=== PATIENT | female | born 1940 | race Caucasian/White ===

== ENCOUNTER → 2023-10-17 11:18 | Outpatient (CLI) | payer MEDICARE, SELFPAY ==
--- NOTE | 2023-10-17 13:00 | DI.MRI.S_ITS ---
PROCEDURE: MR LUMBAR SPINE WO CON INDICATIONS: Spinal stenosis, lumbar region TECHNIQUE: Noncontrast sagittal T1 spin echo and T2 fast echo, sagittal STIR, and T2 fast spin echo through the lumbar spine. In cases with scoliosis, additional coronal T2 fast spin echo may be performed. COMPARISON: [facility] [place], [place], XR LUMBAR SPINE 2 OR 3 VIEWS, 09/22/2023, 13:39. FINDINGS: Image quality: Excellent. Please note, the last well-formed disc space is considered as L5-S1. Hypoplastic T12 ribs. Alignment and Curvature: Moderate levoscoliosis of the lumbar spine, centered at L3. Mild rightward lateral listhesis of L1 on L2. Grade 1 anterolisthesis of L3 on L4, L4 on L5. Bone Marrow: Multilevel mild fibrovascular end plate change. Vertebral body heights are well maintained. Marrow edema of bilateral L3-4 facet, extending into the pedicle of L4, favoring degenerative. Spinal Cord: Conus medullaris terminates at the L1-28 level. Visualized cord demonstrates normal signal and size. Paraspinous Soft Tissues: No paravertebral masses. T11-T12: Mild bilateral facet arthropathy. No stenosis. T12-L1: Mild disc bulge. Mild bilateral facet arthropathy. No stenosis. L1-L2: Mild disc bulge. Mild bilateral facet arthropathy. Mild left neural foraminal stenosis. No right neural foraminal stenosis. No central canal stenosis. L2-L3: Disc bulge. Moderate right facet arthropathy. No significant left facet arthropathy. Mild central canal stenosis. Mild right neural foraminal stenosis. L3-L4: Posterior disc uncovering. Moderate bilateral facet arthropathy. Moderate central canal stenosis. Mild right neural foraminal stenosis. L4-L5: Posterior disc uncovering. Severe bilateral facet arthropathy. Severe central canal stenosis. Mild right neural foraminal stenosis. L5-S1: Disc bulge. Mild bilateral facet arthropathy. No central canal stenosis. Mild right and left neural foraminal stenosis. Visualized sacrum is unremarkable. No abdominal aortic aneurysm. IMPRESSION: Multilevel degenerative changes of the lumbar spine, most pronounced at L4-5, where there is severe central canal stenosis. Additional neural foraminal stenosis as described above. Dictated by: Renata Glaser M.D. on 10/17/2023 at 14:31 Approved by: Renata Glaser M.D. on 10/17/2023 at 14:49
== END ==
LOC: MRI 11:23
PROVIDERS: Referring Provider Physical Medicine & Rehabilitation; Visit Provider Physical Medicine & Rehabilitation
DX: M48.061 Spinal stenosis, lumbar region without neurogenic claudication (principal); M48.07 Spinal stenosis, lumbosacral region; M47.816 Spondylosis without myelopathy or radiculopathy, lumbar region; M47.817 Spondylosis without myelopathy or radiculopathy, lumbosacral region
CPT/HCPCS: 72148

== ENCOUNTER → 2024-01-10 14:29 | Outpatient (CLI) | payer MEDICARE, SELFPAY ==
--- NOTE | 2024-01-10 15:00 | EKG_ITS ---
[facility] [address] [place] [address] Test Date: 2024-01-10 Pat Name: Lisa Chávez Department: [facility] Room: Gender: Female [employer]: ector : [id number] Requested By: Order Number: [id number] Reading MD: Marquis Kuhn MD Measurements Intervals [place] Rate: 81 P: 46 [place]: 168 QRS: -17 QRSD: 86 T: -10 QT: 368 QTc: 427 Interpretive Statements Normal sinus rhythm Minimal voltage criteria for LVH, may be normal variant ( R in aVL ) Nonspecific ST abnormality Electronically Signed On 01-10-2024 16:11:52 PDT by Marquis Kuhn MD
[2024-01-10 15:24] LABS: Add Manual Diff / Slide Review NO; Basophils Absolute Auto 0 /uL (0-100); Basophils Percent Auto 0.5 % (0-2); Eosinophils Absolute Auto 200 /uL (0-450); Eosinophils Percent Auto 2.4 % (2-4); Hematocrit 38.1 % (36-46); Lymphocytes Absolute Auto 3300 /uL (1100-4500); Lymphocytes Percent Auto 35.7 % (25-40); Mean Corpuscular HGB Conc 34.2 % (30-36); Mean Corpuscular Hemoglobin 30.3 PG (26-34); Mean Corpuscular Volume 88.6 fL (80-100); Monocytes Absolute Auto 800 /uL (0-900); Monocytes Percent Auto 9.2 % (3-14); Neutrophils Absolute Auto 4800 /uL (1500-7000); Neutrophils Percent Auto 52.2 % (50-75); Platelet Count 239 X10^3/uL (150-400); Red Cell Distribution Width 13.9 % (11.6-14.8); White Blood Cell Count 9.2 X10^3/uL (4.5-11.0)
[2024-01-10 16:03] LABS: BUN Creatinine Ratio 14.3 (6-22); Blood Urea Nitrogen 13 mg/dL (7-17); Carbon Dioxide 24 mmol/L (22-32); Chloride 107 mmol/L (98-107); Estimated Glomerular Filt Rate > 60 mL/min (>60); Glucose 96 mg/dL (80-110); HEMOLYSIS < 15 (0-50); Potassium 3.7 mmol/L (3.4-5.1); Sodium 140 mmol/L (137-145)
== END ==
PROVIDERS: PCP Registered Nurse; Referring Provider Orthopaedic Surgery Orthopaedic Surgery of the Spine; Visit Provider Orthopaedic Surgery Orthopaedic Surgery of the Spine
DX: Z01.818 Encounter for other preprocedural examination (principal); Z01.812 Encounter for preprocedural laboratory examination
CPT/HCPCS: 36415; 80048; 85025; 93005; 93010